=== PATIENT | male | born 1995 | race Caucasian/White ===

== ENCOUNTER 2022-03-18 17:34 | Emergency (ER) | payer OTHER, SELFPAY ==
[2022-03-18 18:10] VITALS: BP 127/86; PULSE 76; RESP 16; TEMP 36.8; O2SAT 98; BMI 35.3
[2022-03-18 18:13] LABS: UTC Strep Screen (Rapid) Negative (Negative)
--- NOTE | 2022-03-18 18:35 | EXP.UTC ---
Discharge Plan Disposition Patient Disposition: Home, Self-Care Condition: Good Referrals Follow up/Referrals: Walker Duffy MD [Primary Care Provider] - See instructions Activity Restrictions/Add. Instructions Additional Instructions/Restrictions: covid/flu swab was sent to lab, call tomorrow for results. self isolate until test results are known to be negative No sign of a bacterial infection. Likely viral. Viruses can take 7-14 days to run their course. Nasal saline and bulb syringe or nose Deisy to remove nasal drainage to help with nasal congestion. Hard to eat, drink, sleep with nasal congestion so important to keep this cleaned out. Monitor temp. Tylenol or Motrin as needed for pain or fever Encourage fluids, water, Gatorade, Powerade, Pedialyte if infant/toddler/child Warm salt water gargles Warm fluids Sore throat lozenges Sleep elevated Humidifier/vaporizer Follow-up immediately for new or worsening symptoms or no noticeable improvement over the next 48-72 hours. Clinical Impressions Clinical Impression: Upper respiratory infection, viral Instructions Patient Instructions: DI for Viral Upper Respiratory Infection -- Adult Discharge ED Provider: Deb ([facility] HPI General Stated complaint: bodyaches, sore throat, fever Mode of Arrival: Ambulatory Source of Information: Patient Limitations: No Limitations Time Seen by Provider: 03/18/22 18:35 Description of Symptoms (Recalled from Triage Doc. by RN): PATIENT C/O SORE THROAT AND FEVER X 3 DAYS HEENT Symptoms (Recalled from RN notes): Yes Resp Symptoms (Recalled from RN notes): No Skin Symptoms (Recalled from RN notes): No MS Symptoms (Recalled from RN notes): No Functional Status (Recalled from RN notes): WNL History of Present Illness Provider Complaint: 27 yr old male presents for sore throat and congestion for 3 days Related Data Allergies Allergy/AdvReac Type Severity Reaction Status Date / Time Penicillins Allergy Verified 03/18/22 18:33 Worker's Comp Is this a Worker's Comp case?: No [facility] Disclaimer: The information contained in this section may have been updated after the patient was seen, as this information can be updated by other users. 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) Anxiety Depression Diabetes mellitus, type 2 History of heart attack History of left heart catheterization (LHC) Kidney stone Migraine Seizure disorder Urinary tract infection Surgical History , RESISTANCE WELDING MACHINE OPERATOR) History of hysterectomy History of open heart surgery History of tonsillectomy Social History , RESISTANCE WELDING MACHINE OPERATOR) Smoking Status: Unknown if ever smoked alcohol intake: never current occupational status: other Travel in the last 8 weeks: None ROS Obtained: Yes All systems reviewed & no additional complaints except as documented Constitutional Constitutional: Reports system reviewed and no additional complaints, except as documented, Reports as per HPI and Reports body ache Eyes Eyes: Reports system reviewed and no additional complaints, except as documented ENT Ears, Nose, Mouth, and Throat: Reports system reviewed and no additional complaints, except as documented, Reports nasal congestion and Reports sore throat Cardiovascular Cardiovascular: Reports system reviewed and no additional complaints, except as documented Respiratory Respiratory: Reports system reviewed and no additional complaints, except as documented and Reports cough Gastrointestinal Gastrointestingal: Reports system reviewed and no additional complaints, except as documented Integumentary/Breasts Skin/Breast: Reports system reviewed and no additional complaints, except as documented Neurologic Neurologic: Reports system reviewed and no additional complaints, except as documented Endocrine Endocrine: Reports system reviewed and no ad
[2022-03-18 18:42] VITALS: BP 127/86; PULSE 76; RESP 16; TEMP 36.8; O2SAT 98
[2022-03-18 18:53] LABS: Adenovirus,PCR Not Detected (NotDetected); Bordetella Pertussis Not Detected (NotDetected); Chlamydophila Pneumoniae, PCR Not Detected (NotDetected); Coronavirus 19, PCR Not Detected (NotDetected); Coronavirus 229E Not Detected (NotDetected); Coronavirus NL63 Not Detected (NotDetected); Coronavirus OC43 Not Detected (NotDetected); Coronovirus HKU1,PCR Not Detected (NotDetected); Human Metapneumovirus Not Detected (NotDetected); Influenza A, PCR Not Detected (NotDetected); Influenza AH1, 2009 Not Detected (NotDetected); Influenza AH1, PCR Not Detected (NotDetected); Influenza AH3,PCR Not Detected (NotDetected); Influenza B, PCR Not Detected (NotDetected); Mycoplasma Pneumoniae, PCR Not Detected (NotDetected); Parainfluenza 1, PCR Not Detected (NotDetected); Parainfluenza 2, PCR Not Detected (NotDetected); Parainfluenza 3, PCR Not Detected (NotDetected); Parainfluenza 4, PCR Not Detected (NotDetected); Respiratory Syncytial Virus Not Detected (NotDetected); Rhinovirus/Enterovirus Not Detected (NotDetected)
== END 2022-03-18 18:46 | disposition home or self-care (01) ==
PROVIDERS: Emergency Provider Nurse Practitioner Family; PCP Internal Medicine Adolescent Medicine
DX: J02.9 Acute pharyngitis, unspecified (principal); M79.10 Myalgia, unspecified site; R50.9 Fever, unspecified; R09.81 Nasal congestion; Z20.822 Contact with and (suspected) exposure to COVID-19; I25.2 Old myocardial infarction; E11.9 Type 2 diabetes mellitus without complications; G43.909 Migraine, unspecified, not intractable, without status migrainosus; G40.909 Epilepsy, unspecified, not intractable, without status epilepticus; F32.A Depression, unspecified; F41.9 Anxiety disorder, unspecified; Z88.0 Allergy status to penicillin; Z87.442 Personal history of urinary calculi; Z87.440 Personal history of urinary (tract) infections
CPT/HCPCS: 87581; 87632; 87798; 87880; 99213; C9803; G0463; U0003; U0005

== ENCOUNTER 2022-11-26 12:13 | Emergency (ER) | payer OTHER, SELFPAY ==
[2022-11-26 12:13] VITALS: BP 127/83; PULSE 113; RESP 19; TEMP 37.3; O2SAT 97; BMI 32.1
--- NOTE | 2022-11-26 12:14 | ECG_ITS ---
APPROVED REPORT Exam: Resting ECG HR:111 bpm ECG Measurements Heart Rate 111 AXES FL 132 P 69 QRSd 100 QRS 61 QT 323 T 59 QTc 388 Conclusion SINUS TACHYCARDIA ABNORMAL RHYTHM ECG UNCONFIRMED REPORT Electronically signed by : Walker Duffy MD 11/27/2022 19:44:48
[2022-11-26 12:30] VITALS: BP 115/65; PULSE 84; RESP 20; O2SAT 96
--- NOTE | 2022-11-26 12:33 | CT_ITS ---
FINAL REPORT TECHNIQUE: Axial imaging of the head was obtained without contrast. This study was performed with techniques to keep radiation doses as low as reasonably achievable, (ALARA). Individualized dose reduction techniques using automated exposure control or adjustment of mA and/or kV according to the patient''s size were employed. CLINICAL HISTORY: recurrent headaches x 2 weeks, new FINDINGS: The ventricles are normal in size. There is no evidence of hemorrhage. No masses are identified. No extra-axial fluid is seen. The sinuses are normal. There is no acute osseous abnormality. IMPRESSION: No acute intracranial abnormality. Reviewed, Interpreted and Dictated by Naif Campos MD Transcribed by Deepika Rowe Authenticated and [facility]
--- NOTE | 2022-11-26 12:33 | XR_ITS ---
FINAL REPORT CLINICAL HISTORY: chest pain FINDINGS: 2 views of the chest were obtained . The heart is normal in size. The mediastinum is within normal limits. The lungs are clear. There is no pneumothorax. Osseous structures are unremarkable. IMPRESSION: No acute cardiopulmonary process. Reviewed, Interpreted and Dictated by Naif Campos MD Transcribed by Deepika Rowe Authenticated and [facility]
--- NOTE | 2022-11-26 12:34 | HMH.EDGENADL ---
Discharge Plan Disposition Patient Disposition: Home, Self-Care Condition: Good Referrals Follow up/Referrals: Provider,Referral, [Referring] - See instructions Activity Restrictions/Add. Instructions Additional Instructions/Restrictions: You were evaluated in the emergency department today. Please follow-up with your primary care provider tomorrow as scheduled. Return to the emergency department for new or worsening symptoms. Clinical Impressions Clinical Impression: Migraine, Atypical chest pain, Transaminitis Instructions Patient Instructions: DI for Migraine, DI for Atypical Chest Pain Discharge ED Provider: Danica Nichols General Adult HPI General Chief complaint: Chest Pain Stated complaint: chest pain Time Seen by Provider: 11/26/22 12:19 History of Present Illness HPI narrative: This patient is a 27-year-old male with a history of anxiety presenting to the emergency department for evaluation with concern for left-sided chest pain. He states that it is on the left side of his chest, radiating to his left anterior shoulder. He states that it started suddenly while driving yesterday. He denies any known traumatic injuries or other concerns. Nothing seems to make it better or worse. He describes it as a tightness. He denies experiencing anything like this in the past. He does note that he has had intermittent headaches over the last 2 weeks, which he states are in the back of his neck. He states that he thought that maybe he had slept on his neck weird. He is not currently having headache. He denies any fevers, chills, cough, congestion, shortness of breath, abdominal pain, nausea, vomiting, changes in bowel movements, rashes, or swelling. He does note a lot of recent stress. Related Data Allergies Allergy/AdvReac Type Severity Reaction Status Date / Time Penicillins Allergy Verified 03/18/22 18:33 [facility] Disclaimer: The information contained in this section may have been updated after the patient was seen, as this information can be updated by other users. Medical History (Updated 11/26/22 @ 16:09 by Danica Nichols DO) Anxiety Depression Migraine Social History Smoking Status: Never smoker alcohol intake: never current occupational status: other Travel in the last 8 weeks: None ROS Obtained: Yes All systems reviewed & no additional complaints except as documented Physical Exam General General appearance: alert, in no apparent distress and anxious Head Head exam: atraumatic and normocephalic Eye Eye exam: Present normal appearance, PERRL and EOMI ENT ENT exam: Present normal exam, normal oropharynx, mucous membranes moist and normal external ear exam Neck Neck exam: Present normal inspection, full ROM and trachea midline; Absent tenderness Chest Chest inspection: Present normal inspection and symmetric chest wall rise; Absent tenderness Respiratory Respiratory exam: Present normal lung sounds bilaterally; Absent respiratory distress, wheezes, stridor or accessory muscle use Cardiovascular Cardiovascular exam: Present normal rhythm, tachycardia (Low 100s) and normal heart sounds Abdominal Exam Abdominal exam: Present soft; Absent distention, tenderness or guarding Extremities Exam Extremities exam: Present normal inspection, full ROM and normal capillary refill; Absent tenderness, edema or calf tenderness Back Exam Back exam: Present normal inspection and full ROM; Absent tenderness Neurological Exam Neurological exam: Present alert, oriented X3, CN II-XII intact and normal gait; Absent motor sensory deficit Psychiatric Psychiatric exam: Present normal affect and normal mood Skin Skin exam: Present warm and dry Medical Decision Making Medical Records Medical records reviewed: Yes I reviewed the patient's medical records. Shon Inquiry Pt receiving controlled substance: No Vital Signs: 11/26/22 12:13 11/26
[2022-11-26 12:43] LABS: Basophils # 0.1 K/mm3 (0-0.2); Basophils % 1.2 % (0.1-2.0); Eosinophils # 0.2 K/mm3 (0.0-0.4); Eosinophils % 1.5 % (0.1-12.0); Hematocrit 46.4 % (42.0-52.0); Hemoglobin 16.1 g/dL (14.1-18.0); Lymphocytes # 6.8 K/mm3 (0.7-4.5); Lymphocytes % 67.1 % (10-50); Mean Corpuscular HGB Conc 34.7 g/dL (31.8-35.4); Mean Corpuscular Hemoglobin 30.2 pg (27.0-31.2); Mean Corpuscular Volume 87.1 fl (80-94); Mean Platelet Volume 7.5 fl (7.4-10.4); Monocytes # 0.6 K/mm3 (0.1-1.0); Monocytes % 6.3 % (1.7-9.3); Neutrophils # 2.4 K/mm3 (1.8-7.8); Platelet Count 236 K/mm3 (142-424); Red Blood Count 5.32 M/mm3 (4.60-6.20); Red Cell Distribution Width 12.8 % (11.5-17.5); White Blood Count 10.1 K/mm3 (4.8-10.8)
[2022-11-26 12:46] LABS: MANUAL DIFFERENTIAL MANUAL DIFFERENTIAL (MANUAL DIFF)
--- NOTE | 2022-11-26 12:56 | PC.NURSE ---
pt to CT
[2022-11-26 12:57] LABS: Alanine Aminotransferase 226 U/L (12-78); Albumin Level 4.7 g/dl (3.5-5.0); Albumin/Globulin Ratio 1.3 (1.1-1.8); Alkaline Phosphatase 75 U/L (38-126); Anion Gap 12.9 mEq/L (5-15); Aspartate Amino Transferase 77 U/L (17-59); Bilirubin,Total 0.8 mg/dl (0.2-1.3); Blood Urea Nitrogen 16 mg/dl (9-20); Calcium 9.5 mg/dl (8.4-10.2); Carbon Dioxide 29 mmol/L (22.0-30.0); Chloride 104 mmol/L (98-107); Estimated Glomerular Filt Rate 72 ml/min (>60); GFR (African American) 87 ML/MIN (>60); Globulin 3.5 g/dL (1.3-3.2); Glucose 104 mg/dl (74-100); Potassium 3.9 mmoL/L (3.5-5.1); Sodium 142 mmol/L (136-145); Total Protein,Serum 8.2 g/dl (6.3-8.2)
[2022-11-26 12:58] LABS: Coronavirus 19, PCR Not Detected (NotDetected); Influenza A, PCR Not Detected (NotDetected); Influenza B, PCR Not Detected (NotDetected)
[2022-11-26 13:01] LABS: D-Dimer < 0.25 ug/mL (0.0-0.5); Lymphocytes % 65 % (10-50); Monocytes % 5 % (2-9); Neutrophils % 30 % (42-76); Platelet Estimate Normal; RBC Morphology Normal; Total Cells Counted 100
[2022-11-26 13:03] LABS: C-Reactive Protein 1.7 mg/L (0-4)
[2022-11-26 13:18] LABS: Erythrocyte Sedimentation Rate 2 mm/hr (0-15)
[2022-11-26 13:26] VITALS: BP 108/61; PULSE 80; O2SAT 95
[2022-11-26 13:30] VITALS: BP 113/56; PULSE 79; O2SAT 97
[2022-11-26 13:33] LABS: Troponin I < 0.01 ng/ml (0.00-0.034)
--- NOTE | 2022-11-26 13:36 | US_ITS ---
FINAL REPORT CLINICAL HISTORY: chest pain, transaminitis FINDINGS: Sonographic images of the right upper quadrant were obtained. The pancreas is partially obscured.The liver has an unremarkable appearance.The gallbladder appears contracted but without evidence of gallstones.There is no evidence of biliary ductal dilatation.The common duct is within normal limits Limited images of the right kidney are unremarkable. IMPRESSION: Unremarkable right upper quadrant ultrasound. Reviewed, Interpreted and Dictated by Naif Campos MD Transcribed by Deepika Rowe Authenticated and [facility]
--- NOTE | 2022-11-26 13:47 | PC.NURSE ---
notified rad staff per dr. galan does still want pt to have u/s even though pt has eaten in the past couple hrs
--- NOTE | 2022-11-26 15:21 | PC.NURSE ---
submitted 2nd troponin to lab
[2022-11-26 16:15] LABS: Troponin I < 0.01 ng/ml (0.00-0.034)
[2022-11-26 16:19] VITALS: BP 112/60; PULSE 81; RESP 17; TEMP 37.2; O2SAT 98
== END 2022-11-26 16:21 | disposition home or self-care (01) ==
PROVIDERS: Emergency Provider Emergency Medicine; PCP Internal Medicine
DX: R07.89 Other chest pain (principal); G43.909 Migraine, unspecified, not intractable, without status migrainosus; M25.512 Pain in left shoulder; R00.0 Tachycardia, unspecified; F41.9 Anxiety disorder, unspecified; F32.A Depression, unspecified
CPT/HCPCS: 70450; 71046; 76705; 80053; 84484; 85007; 85025; 85378; 85651; 86140; 87636; 93005; 96374; 96375; 99285

== ENCOUNTER → 2022-11-28 06:59 | Outpatient (CLI) | payer OTHER, SELFPAY ==
[2022-11-28 07:39] LABS: Basophils # 0.1 K/mm3 (0-0.2); Eosinophils # 0.1 K/mm3 (0.0-0.4); Eosinophils % 1.3 % (0.1-12.0); Hematocrit 46.8 % (42.0-52.0); Hemoglobin 16.1 g/dL (14.1-18.0); Lymphocytes % 65.3 % (10-50); Mean Corpuscular HGB Conc 34.3 g/dL (31.8-35.4); Mean Corpuscular Hemoglobin 30.4 pg (27.0-31.2); Mean Corpuscular Volume 88.7 fl (80-94); Mean Platelet Volume 7.9 fl (7.4-10.4); Monocytes # 0.5 K/mm3 (0.1-1.0); Monocytes % 6.8 % (1.7-9.3); Neutrophils % 25.7 % (37.0-80.0); Platelet Count 221 K/mm3 (142-424); Red Blood Count 5.28 M/mm3 (4.60-6.20); Red Cell Distribution Width 12.8 % (11.5-17.5); White Blood Count 7.7 K/mm3 (4.8-10.8)
[2022-11-28 07:45] LABS: MANUAL DIFFERENTIAL MANUAL DIFFERENTIAL (MANUAL DIFF)
[2022-11-28 08:11] LABS: Chloride 106 mmol/L (98-107); Sodium 141 mmol/L (136-145)
[2022-11-28 08:12] LABS: Potassium 4.1 mmoL/L (3.5-5.1)
[2022-11-28 08:14] LABS: Alanine Aminotransferase 185 U/L (12-78); Albumin Level 4.5 g/dl (3.5-5.0); Albumin/Globulin Ratio 1.6 (1.1-1.8); Alkaline Phosphatase 79 U/L (38-126); Anion Gap 12.1 mEq/L (5-15); Aspartate Amino Transferase 58 U/L (17-59); Bilirubin,Total 0.8 mg/dl (0.2-1.3); Blood Urea Nitrogen 18 mg/dl (9-20); Carbon Dioxide 27 mmol/L (22.0-30.0); Cholesterol 172 mg/dl (140-200); Estimated Glomerular Filt Rate 79 ml/min (>60); GFR (African American) 96 ML/MIN (>60); Globulin 2.9 g/dL (1.3-3.2); Total Protein,Serum 7.4 g/dl (6.3-8.2); Triglycerides 113 mg/dl (30-150); VLDL Cholesterol 23 mg/dL (0-40)
[2022-11-28 08:15] LABS: Calcium 9.7 mg/dl (8.4-10.2); Chol/HDL Ratio 4.6 (1-3.5); Glucose 111 mg/dl (74-100); HDL Cholesterol 37 mg/dl (40-60)
[2022-11-28 08:23] LABS: Eosinophils % 1 % (0-3); Lymphocytes % 82 % (10-50); Monocytes % 6 % (2-9); Neutrophils % 11 % (42-76); Platelet Estimate Normal; RBC Morphology Normal; Total Cells Counted 100
[2022-11-28 08:24] LABS: Hemoglobin A1C 5.2 % (4.0-6.0)
[2022-11-28 08:26] LABS: Direct LDL Cholesterol 95.61 mg/dL (100-129)
[2022-11-28 08:30] LABS: Free T4 (Free Thyroxine) 1.27 ng/dl (0.78-2.19)
[2022-11-28 09:30] LABS: 25-OH Vitamin D, Total 46.9 ng/mL (30-100)
[2022-11-29 10:51] LABS: HCV Ab Non Reactive (Non Reactive); HIV Screen 4th Generation wRfx Non Reactive (Non Reactive)
== END ==
PROVIDERS: PCP Internal Medicine; Visit Provider Internal Medicine
DX: Z00.00 Encounter for general adult medical examination without abnormal findings (principal); Z11.4 Encounter for screening for human immunodeficiency virus [HIV]; Z11.59 Encounter for screening for other viral diseases; E66.9 Obesity, unspecified; Z68.33 Body mass index [BMI] 33.0-33.9, adult; Z79.899 Other long term (current) drug therapy
CPT/HCPCS: 36415; 80053; 80061; 82306; 83036; 84439; 84443; 85007; 85025; 86703; G0432

== ENCOUNTER 2023-03-08 08:08 | Emergency (ER) | payer OTHER, SELFPAY ==
[2023-03-08 08:10] VITALS: BP 125/83; PULSE 65; RESP 19; TEMP 36.9; O2SAT 95; BMI 32.1
--- NOTE | 2023-03-08 08:16 | CT_ITS ---
FINAL REPORT TECHNIQUE: After the administration of oral and intravenous contrast, axial images were obtained through the abdomen and pelvis by computed tomography. The study was performed with techniques to keep radiation dose as low as reasonably achievable, (ALARA). Individual dose reduction techniques using automated exposure control or adjustment of mA and/or kV according to the patient's size were employed. CLINICAL HISTORY: LLQ abd pain, hx kidney stones, kidney stone pain COMPARISON: None FINDINGS: Abdomen: The lung bases are clear. The liver parenchyma is homogeneous. The gallbladder is present. The spleen, pancreas, and adrenals appear unremarkable. There are multiple bilateral nonobstructing kidney stones. Individual stones measure up to 7 mm in greatest dimension. There is an obstructing stone in the proximal left ureter measuring 7 mm with moderate left hydronephrosis. The aorta is normal in caliber. There is no free fluid or adenopathy. Pelvis: The appendix is not identified. The urinary bladder is unremarkable. There is no free fluid or adenopathy. IMPRESSION: 7 mm obstructing stone left ureter with moderate hydronephrosis. Reviewed, Interpreted and Dictated by Naif Campos MD Transcribed by Ramandeep Garcia Authenticated and [facility]
[2023-03-08 08:18] VITALS: BP 125/83; PULSE 65; O2SAT 97
--- NOTE | 2023-03-08 08:18 | HMH.EDGENADL ---
Discharge Plan Disposition Patient Disposition: Home, Self-Care Condition: Fair Prescriptions Prescriptions: New ondansetron 4 mg tablet,disintegrating 4 mg PO Q6H PRN (Reason: nausea and vomiting) Qty: 15 0RF tamsulosin 0.4 mg capsule 0.4 mg PO DAILY Qty: 14 0RF hydrocodone-acetaminophen 5-325 mg tablet 1 tab PO Q6H PRN (Reason: pain) Qty: 10 0RF No Action hydroxyzine HCl 25 mg tablet 25 mg PO BID PRN (Reason: anxiety) Qty: 30 0RF duloxetine 30 mg capsule,delayed release(DR/EC) 30 mg PO BID Qty: 60 2RF Referrals Follow up/Referrals: Giorgi Green DO [Primary Care Provider] - See instructions Activity Restrictions/Add. Instructions Additional Instructions/Restrictions: You were evaluated in the emergency department today for left flank pain. You have a kidney stone. You have been referred to urology and have an appointment at 12:15. Please go directly to this appointment. Do not eat or drink prior to this appointment in case they decide to perform a procedure. Otherwise, drink plenty of water to help flush the stone. Take the prescribed tamsulosin as directed to help with passage. Take the prescribed Zofran if needed for nausea. Take the prescribed hydrocodone if needed for severe pain. Make an appointment with your primary care physician for reevaluation in 2 to 3 days. Return to the emergency department with any new, worsening, or otherwise concerning symptoms. Clinical Impressions Clinical Impression: Ureterolithiasis, Hydroureter Hydronephrosis Qualifiers: Hydronephrosis type: with ureteral calculous obstruction Qualified Code(s): N13.2 - Hydronephrosis with renal and ureteral calculous obstruction Instructions Patient Instructions: DI for Acute Abdominal Pain Discharge ED Provider: Bill Diaz General Adult HPI General Chief complaint: Abdominal Pain Stated complaint: adm pain Time Seen by Provider: 03/08/23 08:10 History of Present Illness HPI narrative: This 28-year-old male with a history of kidney stones presents to the emergency department with left lower quadrant abdominal pain. Patient states that onset around 3 to 4 AM. He is having nausea, no vomiting. He has been able to urinate since the onset of the pain. The pain radiates to the left groin. He states it is exactly like his prior kidney stone pain. Most recent kidney stone was approximately 10 years ago. No other positive review of systems at this time. Related Data Previous Rx's Medication Instructions Recorded hydroxyzine HCl 25 mg tablet 25 mg PO BID PRN anxiety #30 tabs 11/27/22 duloxetine 30 mg capsule,delayed 30 mg PO BID #60 caps 01/24/23 release hydrocodone 5 mg-acetaminophen 325 1 tab PO Q6H PRN pain #10 tabs 03/08/23 mg tablet ondansetron 4 mg disintegrating 4 mg PO Q6H PRN nausea and 03/08/23 tablet vomiting #15 tabs tamsulosin 0.4 mg capsule 0.4 mg PO DAILY #14 caps 03/08/23 Allergies Allergy/AdvReac Type Severity Reaction Status Date / Time Penicillins Allergy Verified 12/11/22 09:29 [facility] Disclaimer: The information contained in this section may have been updated after the patient was seen, as this information can be updated by other users. Medical History Anxiety Depression Migraine Family History Grandmother Cancer Heart attack Hypertension Grandfather Heart attack Cancer Lung and brain cancer on Maternal side Social History Smoking Status: Never smoker alcohol intake: never current occupational status: other Travel in the last 8 weeks: None ROS Obtained: Yes All systems reviewed & no additional complaints except as documented Constitutional Constitutional: Denies chills, Denies fever(s), Denies headache(s) and Denies weakness Eyes Eyes: Denies change
[2023-03-08 08:23] LABS: Microscopic, Urine URINE MICROSCOPIC (MICROSCOPIC)
[2023-03-08 08:30] VITALS: BP 121/86; PULSE 63; O2SAT 97
[2023-03-08 08:37] LABS: Basophils # 0.1 K/mm3 (0-0.2); Basophils % 0.9 % (0.1-2.0); Eosinophils # 0.1 K/mm3 (0.0-0.4); Eosinophils % 2.1 % (0.1-12.0); Hematocrit 49.7 % (42.0-52.0); Hemoglobin 17.1 g/dL (14.1-18.0); Lymphocytes # 2.5 K/mm3 (0.7-4.5); Lymphocytes % 50.2 % (10-50); Mean Corpuscular HGB Conc 34.5 g/dL (31.8-35.4); Mean Corpuscular Volume 89.9 fl (80-94); Monocytes # 0.4 K/mm3 (0.1-1.0); Monocytes % 7.1 % (1.7-9.3); Neutrophils # 1.9 K/mm3 (1.8-7.8); Neutrophils % 39.6 % (37.0-80.0); Platelet Count 208 K/mm3 (142-424); Red Blood Count 5.52 M/mm3 (4.60-6.20); Red Cell Distribution Width 12.8 % (11.5-17.5); White Blood Count 4.9 K/mm3 (4.8-10.8)
[2023-03-08 08:39] LABS: MANUAL DIFFERENTIAL MANUAL DIFFERENTIAL (MANUAL DIFF)
[2023-03-08 08:43] LABS: Chloride 105 mmol/L (98-107); Sodium 140 mmol/L (136-145)
[2023-03-08 08:44] LABS: Potassium 4.1 mmoL/L (3.5-5.1)
[2023-03-08 08:46] LABS: Alanine Aminotransferase 68 U/L (12-78); Albumin Level 4.8 g/dl (3.5-5.0); Albumin/Globulin Ratio 1.5 (1.1-1.8); Alkaline Phosphatase 57 U/L (38-126); Anion Gap 11.1 mEq/L (5-15); Aspartate Amino Transferase 38 U/L (17-59); Bilirubin,Total 0.8 mg/dl (0.2-1.3); Blood Urea Nitrogen 20 mg/dl (9-20); Carbon Dioxide 28 mmol/L (22.0-30.0); Creatinine Clearance Estimated 145 mL/min (50-200); Estimated Glomerular Filt Rate 79 ml/min (>60); GFR (African American) 95 ML/MIN (>60); Globulin 3.1 g/dL (1.3-3.2); Total Protein,Serum 7.9 g/dl (6.3-8.2)
[2023-03-08 08:47] LABS: Calcium 9.2 mg/dl (8.4-10.2); Glucose 112 mg/dl (74-100)
[2023-03-08 09:00] VITALS: BP 119/86; PULSE 61; O2SAT 98
[2023-03-08 09:01] LABS: Appearance,Urine CLEAR (Clear); Bilirubin,Urine Negative (Negative); Blood, Urine Negative (Negative); Color,Urine YELLOW (Yellow); Glucose,Urine (UA) Negative (Negative); Ketones,Urine Negative (Negative); Leukocyte Esterase,Urine Negative (Negative); Nitrate,Urine Negative (Negative); PH,Urine 7.5 (5.0-8.5); Protein,Urine Negative (Negative); Urobilinogen,Urine 0.2 EU/dl (0.2)
[2023-03-08 09:06] LABS: Lymphocytes % 54 % (10-50); Monocytes % 5 % (2-9); Neutrophils % 36 % (42-76); Platelet Estimate Normal; RBC Morphology Normal; Total Cells Counted 100
[2023-03-08 09:13] LABS: Bacteria,Urine Trace /lpf; Squamous Epithelial Cell,Urine Occasional #/hpf (0-5)
--- NOTE | 2023-03-08 09:31 | PC.NURSE ---
pt to ct scan via wheelchair
--- NOTE | 2023-03-08 09:50 | PC.NURSE ---
Dr. Diaz at bedside
--- NOTE | 2023-03-08 10:04 | PC.NURSE ---
Spoke with Dr. Barragan office to set up follow up appointment. Pt has appointment scheduled for 03/08/23 at 12:15. Facesheet and CT report faxed
[2023-03-08 10:53] VITALS: BP 116/78; PULSE 60; RESP 17; TEMP 36.9; O2SAT 98
== END 2023-03-08 10:57 | disposition home or self-care (01) ==
PROVIDERS: Emergency Provider Emergency Medicine; PCP Internal Medicine
DX: N13.2 Hydronephrosis with renal and ureteral calculous obstruction (principal); N13.4 Hydroureter; R10.32 Left lower quadrant pain; F41.9 Anxiety disorder, unspecified; F32.A Depression, unspecified
CPT/HCPCS: 74177; 80053; 81001; 85007; 85025; 96361; 96374; 96375; 99285; J2405; Q9967

== ENCOUNTER 2024-03-17 17:07 | Emergency (ER) | payer OTHER, SELFPAY ==
[2024-03-17 18:00] VITALS: BP 113/76; PULSE 96; RESP 18; TEMP 37.4; O2SAT 98; BMI 35.2
--- NOTE | 2024-03-17 18:10 | ED_ITS ---
Discharge Plan Disposition Patient Disposition: Home, Self-Care Condition: Good Prescriptions Prescriptions: New azithromycin [Zithromax] 250 mg tablet 250 mg PO UD DOSE PK Qty: 6 0RF Rx Instructions: Take two (2) tablets today, then one (1) tablet days #2 thru #5 methylprednisolone 4 mg Tablets,Dose Pack 4 mg PO DIRECTED 6 Days Qty: 21 0RF Rx Instructions: Take 1 pack as directed for 6 days [id number] [Bromfed DM] 2-30-10 mg/5 mL Syrup 5 ml PO Q6H PRN (Reason: Cough) Qty: 240 0RF No Action duloxetine 30 mg capsule,delayed release(DR/EC) 30 mg PO DAILY Referrals Follow up/Referrals: Giorgi Green DO [Primary Care Provider] - See instructions Activity Restrictions/Add. Instructions Additional Instructions/Restrictions: Drink plenty of fluids. Take tylenol or ibuprofen for pain or fever. Take the medications as directed. Follow up with your regular doctor. GO TO THE ER FOR ANY WORSENING SYMPTOMS Clinical Impressions Clinical Impression: Pharyngitis Instructions Patient Instructions: Sore Throat, DI for Pharyngitis/Tonsillopharyngitis -- Adult Print Language Print Language: Slovenian Discharge ED Provider: Javier Smalls [facility] General Stated complaint: sore throat,aches and pain Time Seen by Provider: 03/17/24 18:10 Related Data Home Medications ?Medication ?Instructions ?Recorded ?Confirmed duloxetine 30 mg capsule,delayed 30 mg PO DAILY 03/17/24 03/17/24 release Previous Rx's ?Medication ?Instructions ?Recorded azithromycin 250 mg tablet 250 mg PO UD DOSE PK #6 tabs 03/17/24 (Zithromax) [id number] 5 ml PO Q6H PRN Cough #240 mL 03/17/24 2 mg-30 mg-10 mg/5 mL oral syrup (Bromfed DM) methylprednisolone 4 mg tablets in 4 mg PO DIRECTED 6 days #21 tabs 03/17/24 a dose pack Allergies Allergy/AdvReac Type Severity Reaction Status Date / Time Penicillins Allergy Verified 12/11/22 09:29 [facility] Disclaimer: The information contained in this section may have been updated after the patient was seen, as this information can be updated by other users. Medical History Anxiety Depression Migraine Family History Grandmother Cancer Heart attack Hypertension Grandfather Heart attack Cancer Lung and brain cancer on Maternal side Social History Smoking Status: Never smoker alcohol intake: never current occupational status: other Travel in the last 8 weeks: None ROS Obtained: Yes All systems reviewed & no additional complaints except as documented Constitutional Constitutional: Reports chills and Reports fever(s) Eyes Eyes: Denies eye discharge ENT Ears, Nose, Mouth, and Throat: Reports as per HPI Cardiovascular Cardiovascular: Denies chest pain Respiratory Respiratory: Denies chest congestion and Reports cough Gastrointestinal Gastrointestingal: Reports nausea; Denies abdominal pain, constipation, cramping, diarrhea or vomiting Musculoskeletal Musculoskeletal: Denies arthralgias Integumentary/Breasts Skin/Breast: Denies rash Neurologic Neurologic: Denies paresthesias Physical Exam General General appearance: alert and in no apparent distress Head Head exam: atraumatic, normocephalic and normal inspection Eye Eye exam: Present normal appearance, PERRL and EOMI ENT ENT exam: Present mucous membranes moist and normal external ear exam Expanded ENT Exam TM/Canal exam: Bilateral TM: erythema and bulging Nose exam: Absent sinus tenderness Mouth exam: Present normal external inspection; Absent drooling Teeth exam: Present normal inspection Throat exam: Present tonsillar erythema, tonsillomegaly and tonsillar exudate Neck Neck exam: Present normal inspection, full ROM and trachea midline; Absent tenderness, meningismus or lymphadenopathy Chest Chest inspection: Present normal inspection and symmetric chest wall rise; Absent tenderness Respiratory Respiratory exam: Present normal lung sounds bilaterally; Absent respiratory distress, wheezes, stridor or accessory muscle use Cardiovascular Cardiovascular exam: Present regular rate and normal rhythm; Absent systolic murmur or diastolic murmur Abdominal Exam Abdominal exam: Present soft and normal bowel sounds; Absent distention, tenderness, guarding, rebound or rigidity Extremities Exam Extremities exam: Present normal inspection and normal capillary refill; Absent calf tenderness Back Exam Back exam: Present normal inspection and full ROM; Absent tenderness, CVA tenderness (R) or CVA tenderness (L) Neurological Exam Neurological exam: Present alert, oriented X3 and CN II-XII intact Psychiatric Psychiatric exam: Present normal affect and normal mood Skin Skin exam: Present warm, dry, intact and normal color Medical Decision Making Medical Records Medical records reviewed: No I reviewed the patient's medical records. Screening: Per USPSTF and CDC recommendations, given the prevalence of disease in our region, it is our hospital?s policy to screen for HIV and viral Hepatitis for all patients aged 18 and over and those with ongoing risk factors. Shon Inquiry Pt receiving controlled substance: No Lab Data Lab results reviewed: Yes I reviewed the patient's lab results.
[2024-03-17 18:17] LABS: UTC Strep Screen (Rapid) Negative (Negative)
[2024-03-17 18:42] VITALS: BP 113/76; PULSE 96; RESP 18; TEMP 37.4; O2SAT 98
== END 2024-03-17 18:44 | disposition home or self-care (01) ==
PROVIDERS: Emergency Provider Nurse Practitioner Family; PCP Internal Medicine
DX: J02.9 Acute pharyngitis, unspecified (principal)
CPT/HCPCS: 87880; 99213; G0381